=== PATIENT | male | born 1980 | race Caucasian/White ===

== ENCOUNTER 2020-05-09 13:52 | Emergency (ER) | payer OTHER ==
[~2020-05-09] VITALS: Ht 180.3 cm; Wt 111.3 kg
[2020-05-09 16:00] VITALS: BP 139/74
== END 2020-05-09 16:00 | disposition home or self-care (01) | DRG 951 ==
LOC: ED 13:52
DX: Z20.828 Contact with and (suspected) exposure to other viral communicable diseases (principal)